=== PATIENT | male | born 1945 | race Caucasian/White ===

== ENCOUNTER 2017-01-26 06:56 | Inpatient (IN) | payer OTHER ==
--- NOTE | 2017-01-19 11:44 | PCM.ANEPRE ---
Anesthesia Pre-Op Review Reason for Review: Neuro hx- recent subdurals, cardio hx= Anesthesia Recommendations: Proceed with Procedure Additional Comments 71 yo with Parkinsons s/p deep brain stimulator, h/o bioprosthetic AVR, scheduled for TKR. Previously cancelled due to bradycardia which has had meds adjusted. In the interim, he has had a subdural hematoma in 10/27 following a fall. No residual neurologic deficit. Not on anticoagulation. His neurosurgeon Dr Jenkins reportedly cleared him for surgery on 01/05/17. Will need to turn of Deep Brain Stimulator off prior to surgery and recommended us of bipolar cautery during surgery. Would probably be best served by Spinal anesthetic at the discretion of anesthesiologist who will need to re-evaluate the patient on DOS. No additional workup or clearance needed. Chart Reviewed by: Jono Brooks MD Jan 19, 2017 11:44
[~2017-01-26] VITALS: Ht 177.8 cm; Wt 81.6 kg
[2017-01-26] VITALS (11 sets, daily range): BP systolic 96–135; BP diastolic 49–88; PULSE 53–88; RESP 13–18; O2SAT 89–99
[2017-01-26] MEDS: Lactated Ringer's 1,000 ML IV SCH ×2 (06:00→14:21)
[~2017-01-26 06:56] MED LIST: ASPI-973 PO; Bupivacaine Liposome 1.3% 20 mL Inj INFILTRATE ONE; CARB1TAB14 PO; CARV3.122 PO; CLOT30SO TOPICAL; CeFAZolin 2 Gm/50 mL D5W IV Premix IV ONE; DOCU250C2 PO; LISI2.5T PO; Lactated Ringer's 1,000 ML IV ONE; PARO40TA3 PO; RASA0.5T PO; UREA198C TP; Vancomycin Inj 1,000 MG in IV Premix 1 EACH IV ONE
--- NOTE | 2017-01-26 08:19 | PCM.HPANE ---
Patient Data Date of Service: Jan 26, 2017 Surgeon Admitting Provider: Attending Provider:Shubham Mensah MD Primary Care Physician:Erin Moses MD Other Provider:Alfredo Atwood Anesthesia Reason for Visit Right Knee Arthritis Ht/WT & BMI Height (Feet): 5 Height (Inches): 10 Weight (Kilograms): 84.1 Body Mass Index 26.00 Allergies Coded Allergies: No Known Allergies (Unverified , 06/25/16) Past Anesthesia History Anesthesia History: Denies:: Anesthesia Reactions (hallucinations post surgery) , Malignant Hyperthermia Diabetes History Hx Diabetes?: No MRSA MRSA: No Medications Blood Thinner: Aspirin Hypertension Medication: Yes Home Meds Incl Beta Raissa: No Reported Medications Paroxetine 40 Mg [id number] Mg PO AM 30 Days Ref 0 01/16/17 Docusate Sodium 250 Mg [id number] Mg PO DAILY Ref 0 01/16/17 Clotrimazole 1% 30 Ml [id number] Ml TOPICAL BID 01/16/17 Carbidopa/Levodopa 25-100 mg 1 Each Tablet1 Tablet PO TID 01/16/17 Aspirin 81 Mg [id number] Mg PO DAILY Ref 0 01/16/17 Discontinued Reported Medications Urea 30 Gm Cream..g.30 Gm TP BID 01/16/17 Lisinopril 2.5 Mg Tablet2.5 Mg PO DAILY 30 Days Ref 0 01/16/17 Carvedilol 3.125 Mg Tablet3.125 Mg PO BID Ref 0 01/16/17 Rasagiline Mesylate (Azilect)0.5 Mg Tablet0.5 Mg PO DAILY 01/16/17 History History of ENT Problems?: Yes HEENT History: Positive for:: Dysphagia (occasionally difficult with pills and some food ) Hearing Problem Denies:: Cataracts Glaucoma Denture Type: Full- Upper Full- Lower Teeth Condition: No Teeth Hx of Heart Problems?: Yes Cardiovascular History: Positive for:: Abdominal Aortic Aneurism (S/P ASCENDING AORTIC REPLAC. GRAFT/LIGATION LT ATRIAL APPENDAGE-COLO 2010) Cardiac Surgery (AVR- 2010) Chest Pain Heart Murmur Hypertension Irregular Heartbeat (PAC'S HOLTER MONITOR 03/2016) Valvular Heart Disease (echo 10/2016 ef 52%) Hx of Respiratory Problem?: Yes Respiratory History: Positive for:: Asthma COPD Dyspnea Denies:: Oxygen Administration Pneumonia Tuberculosis Use of C-PAP Machine Use of Inhalers / NEBS Hx Neurologic Problems?: Yes Neurological History: Positive for:: Parkinson's Disease (mainly unstable "feet freeze") Denies:: Alzheimer's Disease CVA Dizziness Headaches Multiple Sclerosis Seizures Other Neurological Pertinent: hx of subdural hematoma removed 10/2016- from fall deep brain stimulator in place for parkinsons - neuro clearance Hx of GI Problems?: Yes Hx of Problems?: No Genitourinary History: Denies:: Kidney Stones Urinary Tract Infection Male Hx: Denies:: Prostate Problems Scrotal Mass Testicular Surgery Skin History: Denies:: History Skin Disorders? Pressure Ulcers Hx Musculoskeletal Problems?: Yes Musculoskeletal History: Positive for:: Degenerative Joint Osteoarthritis Denies:: Back Injury Fibromyalgia Joint Replacement Myasthenia Gravis Systemic Lupus Hx of Psycho/Social Problems?: Yes Psycho Social History: Positive for:: Hx Depression Hx Surgeries?: Yes (DEEP BRAIN STIM,SYNTHETIC GENE INFUSION,AVR,ASC AORTIC GRAFT/LT ATRIAL APPE) Hx Any Other Health Problems?: Yes Other History: Positive for:: Hospitalization Denies:: Cancer Endocrine Disease Thyroid Disease Hx Diabetes: No Hx Alcohol Use: YesAlcoholic Drinks Per Day: beer once a weekHx Substance Use : No Smoking Status: Former Smoker Have You Smoked inLast 12 mo: No Stop/Bang Treated for Sleep Apnea?: No Do You Have a CPAP Machine?: No P-Blood Pressure: treated: Yes B- Body Mass Index > 35 kg/m2: No A- Age over 50: Yes N- Neck Large Circumference: No G- Gender Male: Yes CHAD Risk Assessment: High Risk, =/>3 Yes CHAD Category 4 OutPt Procedure: Yes Risk Assessment Category Category 1A: Patient has history of documented sleep apnea, and HAS NOT received any narcotic, sedative or anesthesia administration during this stay. Category 1B: Patient has history of documented sleep apnea, and HAS received any narcotic , sedative or anesthesia administration during this stay Category 2: Patient has SUSPECTED Obstructive Sleep Apnea, and HAS received any narcotic , sedative or anesthesia administration during this stay. Category 3: Patient has SUSPECTED Obstructive Sleep Apnea and HAS NOT received narcotic, sedative or anesthesia administration during this stay. Category 4: Outpatient in Procedural Areas with known sleep apnea or who screen positive for High Risk via the STOP/BANG questionnaire. Exam Exam Vital Signs Vital Signs Date Time Temp Pulse Resp B/P Pulse Ox O2 Delivery O2 Flow Rate FiO2 01/26/17 07:45 36.6 53 17 127/76 96 Room Air General Appearance: Alert, Oriented X3, Cooperative, No Acute Distress HEENT/AIRWAY: MP 2, Neck Movement (limited), Mouth Opening (3 fb) Lungs: Clear to Auscultation, Normal Air Movement Heart: Exam Unremarkable, Regular Rate/Rhythm, No Murmurs/Rubs/Gallops Meds/Labs/Diagnostics Admission Meds Current Medications Vancomycin/0.9 % Sod Chloride 1000 mg/Premix 200 ml @ 133.333 mls/hr PREOP ONCE IV Last administered on 01/26/17 08:11; Start 01/26/17 at 06:00; Stop at 07:29; Status DC Lactated Ringer's (Lr) 1,000 ml @ 120 mls/hr Q8H20M ONCE IV Last administered on 01/26/17 07:26; Start 01/26/17 at 05:00; Stop 01/26/17 at 13:19 Celecoxib (CeleBREX) 200 mg PREOP ONCE PO Last administered on 01/26/17 07:52 ; Start 01/26/17 at 06:00; Stop 01/26/17 at 06:01; Status DC Acetaminophen (Tylenol) 1,000 mg PREOP ONCE PO Last administered on 01/26/17 07:52; Start 01/26/17 at 06:00; Stop 01/26/17 at 06:01; Status DC Plan Impression Patient chart reviewed, patient interviewed and anesthestic plan with risks, benefits, and alternatives discussed, and informed consent obtained. NPO per Anesth. Guidelines: Yes ASA Physical Status: ASA3 Severe Disease Anesthetic Plan: GA Bene/Risks/Altern/Consents: Yes HP Complete Prior to Induction: Yes Other Patient does not want SAB, prefers GA. Jay Bass MD Jan 26, 2017 08:19
[2017-01-26] MEDS ORDERED: Tranexamic Acid 100 mg/mL 10 mL Inj ONE (09:25)
[2017-01-26] MEDS ORDERED: 0.9% Sodium Chloride 100 ML ONE (09:26)
[2017-01-26] MEDS ORDERED: Lactated Ringer's 1,000 ML IV SCH (10:04)
[2017-01-26] MEDS ORDERED: Lactated Ringer's 500 ML IV PRN (10:04)
[2017-01-26] MEDS ORDERED: EPHEDrine Sulfate 50 mg/mL Inj IM PRN (10:05)
[2017-01-26] MEDS ORDERED: Labetalol 5 mg/mL 4 mL Inj IV PRN (10:05)
[2017-01-26] MEDS ORDERED: fentaNYL-PF 50 mCg/mL 2 mL Inj IVPUSH PRN (10:05)
[2017-01-26] MEDS ORDERED: EPHEDrine Sulfate 50 mg/mL Inj IVPUSH PRN (10:05)
[2017-01-26] MEDS ORDERED: Ondansetron 2 mg/mL 2 mL Inj IVPUSH PRN ×2 (10:05→11:15)
[2017-01-26] MEDS ORDERED: HYDROmorphone 1 mg/mL Inj IVPUSH PRN (10:05)
[2017-01-26] MEDS ORDERED: Phenylephrine 10,000 mCg/mL Inj IVPUSH PRN (10:05)
[2017-01-26] MEDS ORDERED: Bupivacaine Liposome 1.3% 20 mL Inj INFILTRATE ONE (10:13)
[2017-01-26] MEDS ORDERED: Gentamicin 40 mg/mL 2 mL Inj IRRIGATION ONE (10:13)
[2017-01-26] MEDS ORDERED: Bupivacaine-MPF 0.5% W/EPI 30 mL Inj INFILTRATE ONE (10:13)
[2017-01-26] MEDS ORDERED: Vancomycin Dose per Pharmacist XX ONE (11:15)
[2017-01-26] MEDS ORDERED: Magnesium Hydroxide 10 mL Oral Concentration PO PRN (11:15)
[2017-01-26] MEDS ORDERED: Polyethylene Glycol (PEG) 17 Gm Powder PO PRN (11:15)
[2017-01-26] MEDS ORDERED: MetoCLOpramide 5 mg/mL 2 mL Inj IVPUSH PRN (11:15)
[2017-01-26] MEDS ORDERED: Sodium Biphos-Phos 133 mL Enema RECTAL PRN (11:15)
[2017-01-26] MEDS ORDERED: diphenhydrAMINE 25 mg Capsule PO PRN (11:15)
[2017-01-26] MEDS ORDERED: Ketorolac 15 mg/mL Inj IVPUSH PRN (11:15)
[2017-01-26] MEDS ORDERED: EPHEDrine/NS 5 mg/mL 5 mL Syringe ONE (12:29)
[2017-01-26] MEDS ORDERED: Propofol 10,000 mCg/mL 20 mL Inj ONE (12:29)
[2017-01-26] MEDS ORDERED: Dexamethasone 4 mg/mL Inj ONE (12:29)
[2017-01-26] MEDS ORDERED: fentaNYL-PF 50 mCg/mL 2 mL Inj ONE (12:29)
[2017-01-26] MEDS ORDERED: Ondansetron 2 mg/mL 2 mL Inj ONE (12:29)
[2017-01-26] MEDS ORDERED: HYDROmorphone 0.5 mg/0.5 mL iSecure Syringe IVPUSH PRN (12:40)
--- NOTE | 2017-01-26 12:52 | DRSVH ---
PROCEDURE: X-RAY RIGHT KNEE, ONE OR TWO VIEWS ([id number]) INDICATIONS: postop TECHNIQUE: 2 view(s) of the knee acquired. COMPARISON: None. FINDINGS: Bones: Patient is status post knee joint arthroplasty. Hardware components are in expected position s. Visualized bony structures are intact. Soft tissues: Overlying postoperative changes are noted. IMPRESSION: Postoperative changes status post right total knee arthroplasty. Dictated by: Madina Tran M.D. on 01/26/2017 at 12:50 Approved by: Madina Tran M.D. on 01/26/2017 at 12:50
[2017-01-26] MEDS: RYTARY PO SCH ×2 (12:53→20:01)
--- NOTE | 2017-01-26 12:59 | PCM.ANEP1 ---
Post Anesthesia PACU Phase 1 Assessment Date of Service: Jan 26, 2017 Vital Signs Vital Signs Date Time Temp Pulse Resp B/P Pulse Ox O2 Delivery O2 Flow Rate FiO2 01/26/17 12:20 88 18 111/72 95 Room Air 01/26/17 12:10 85 18 96/49 96 Room Air 01/26/17 12:05 37.3 85 13 114/77 96 Room Air 01/26/17 12:00 85 14 111/67 94 Room Air 01/26/17 11:55 84 15 123/88 95 Simple Mask 8 01/26/17 11:50 82 15 130/73 99 Simple Mask 8 01/26/17 11:45 83 14 135/77 99 Simple Mask 8 01/26/17 11:40 81 14 116/57 98 Simple Mask 8 01/26/17 07:45 36.6 53 17 127/76 96 Room Air Anesthetic Administered: GA Level of Alertness: Awake, talking ANAYA's with Equal Strength: Yes Pain: Yes Pain Scale Score: 5 Nausea or Vomiting: No CV Function & Hydration Stable: Yes Airway Device: none Oxygen Delivery: Room Air Lungs: Clear to Auscultation, Normal Air Movement Dermatome Level: Full Sensation PACU Phase 2 Assessment Complications: No Follow up Care: No Patient Instructions Provided: N/A Jay Bass MD Jan 26, 2017 12:59
--- NOTE | 2017-01-26 13:00 | NUR ---
arrived to room 1016 from PACU S/P Right total knee replacement. VSS, alert, oriented, comfortable, denies nausea, was able to eat lunch. ortho signs OK
[2017-01-26] MEDS: Sodium Chloride LOK Flush 10 mL Syringe IV SCH (14:21)
[2017-01-26] MEDS: HYDROcodone-APAP 5-325 mg Tablet PO PRN (14:24)
--- NOTE | 2017-01-26 15:33 | NUR ---
Evaluation completed. Please go to "Notes" then click on "Assessments and Notes" (bottom left corner of screen). Then select appropriate discipline tab on top of screen.
--- NOTE | 2017-01-26 17:51 | OP ---
[address] [address] OPERATIVE REPORT PATIENT: MIGDALIA BESS : 1945 MR#: [id number] ADMIT: 01/26/2017 JOB ID: [id number] DATE OF SURGERY: 01/26/2017 SURGEON: Shubham Mensah MD. PREOPERATIVE DIAGNOSIS(ES): Advanced lateral compartment osteoarthritis, right knee. POSTOPERATIVE DIAGNOSIS(ES): Lateral compartment osteoarthritis, right knee. PBX SUPERVISOR: Kourtney Wu PA-C. INDICATIONS: This gentleman has had persistent now extreme disability. He is unable to ambulate on his knee. Due to the extreme pain, symptoms are uncontrolled by conservative treatment options. He elects to proceed with a unicompartmental versus total knee arthroplasty dependent on findings at the time of surgery. PROCEDURE IN DETAIL: The patient was prepped and draped in the usual sterile fashion. An anterolateral portal was made. Medial compartment was visualized arthroscopically and moderately advanced osteoarthritis was noted at the time. Decision was made to proceed with a total knee and anteromedial approach was made. Dissection carried down. The patella was subluxed laterally, was visualized and noted to be in excellent condition with no significant wear of the trochlear groove. A drill hole was subsequently placed in his distal femur and a 5 degree valgus distal femoral cut was made and the femur was sized to a 10 femoral component. Chamfer cuts and drill holes were made. The tibia was cut with the extramedullary tool and subsequently sized to an F tray fixed in appropriate position, rotation and drill and punch was utilized. Trial reductions performed. A 10 mm polyethylene produced excellent soft tissue tension, tracking and alignment. All meniscal tissue and osteophytes were carefully removed from the knee. Pressurized lavage was followed by pressurized cementation of the components. Excess cement was removed during the curing process. Final construct was assembled. Final poly snapped securely into place. Tourniquet was let down. TXA was given for hemostasis control. Electrocautery was not utilized due to his deep brain stimulator. A deep Hemovac drain, however, was left. Deep closure with #2 Quill deep followed by a 2-0 Vicryl, 3-0, and a 4-0 intracuticular stitch. Patient tolerated procedure well. There were no complications.
[2017-01-26] MEDS: Senna-Docusate 8.6-50 mg Tablet PO SCH (20:26)
[2017-01-26] MEDS ORDERED: Vancomycin Inj 1,250 MG in 0.9% Sodium Chloride 250 ML IV ONE (20:30)
[2017-01-27] MEDS: Sodium Chloride LOK Flush 10 mL Syringe IV SCH ×3 (00:33→16:27)
--- NOTE | 2017-01-27 03:35 | NUR ---
Activity Pt has denied pain so far this shift and reports "feeling comfortable." Ice applied to knee. Manohar wrap dressing is CDI, hemovac draining serosanguineous drainage, 115 cc so far this shift. Orthos intact. Pt using urinal at bedside and stood up with SBA and FWW to put underwear on. Tolerating general diet. SCDs are on.
[2017-01-27] MEDS: HYDROcodone-APAP 5-325 mg Tablet PO PRN ×3 (04:16→13:46)
[2017-01-27 05:45] VITALS: BP 115/73; PULSE 83; RESP 18; O2SAT 97
[2017-01-27 06:48] LABS: BASOPHILS % (AUTO) 0.1 % (0-3); EOSINOPHILS % (AUTO) 0.7 % (0-5); MONOCYTES % (AUTO) 9.1 % (4-12); Mean Corpuscular Hemoglobin 28.9 pg (27.0-35.0); Mean Corpuscular Volume 88.9 fL (81-100); Platelet Count 153 bil/L (150-400)
[2017-01-27] MEDS: Lactated Ringer's 1,000 ML IV SCH ×2 (07:00→19:30)
[2017-01-27] MEDS: RYTARY PO SCH ×3 (07:17→20:47)
--- NOTE | 2017-01-27 08:43 | PCM.PNORTH ---
Subjective Visit Information: Reason for Visit Right Knee Arthritis Surgery/Surgery Date R TKA 01/26/17 Post-Op Day # Date of Admission: Jan 26, 2017 at 12:28 Hospital Day # Objective Exam Vital Signs and I/O Vital Sign - Last Date Time Temp Pulse Resp B/P Pulse Ox O2 Delivery O2 Flow Rate FiO2 01/27/17 05:45 36.6 83 18 115/73 97 Room Air 01/26/17 11:55 8 Intake and Output 01/26/17 01/26/17 01/27/17 Cumulative From/Thru 15:00 23:00 07:00 01/16/17 16:14 - 01/27/17 06:20 Intake Total 1350 ml 600 ml 820 ml 2770 ml Output Total 100 ml 400 ml 975 ml 1475 ml Balance 1250 ml 200 ml -155 ml 1295 ml Intake Oral 600 ml 550 ml 1150 ml IV Total 1350 ml 270 ml 1620 ml Output Urine Total 400 ml 650 ml 1050 ml Drainage Total 0 ml 325 ml 325 ml Estimated Blood Loss 100 ml 100 ml Lab & Micro Results Laboratory Tests Test 01/27/17 05:33 White Blood Count 7.4th/mm3 (3.8-10.1) Red Blood Count 3.80mil/mm3 (4.40-5.80) Hemoglobin 11.0g/dL (13.8-17.2) Hematocrit 33.8% (41.0-50.0) Mean Corpuscular Volume 88.9fL (81-100) Mean Corpuscular Hemoglobin 28.9pg (27.0-35.0) Mean Corpuscular Hemoglobin Concent 32.5% (32.0-37.0) Red Cell Distribution Width 14.7% (12.3-15.4) Platelet Count 153bil/L (150-400) Neutrophils (%) (Auto) 79.0% (40-74) Lymphocytes (%) (Auto) 10.8% (14-46) Monocytes (%) (Auto) 9.1% (4-12) Eosinophils (%) (Auto) 0.7% (0-5) Basophils (%) (Auto) 0.1% (0-3) Result Diagram: 01/27/17 0533 SURGICAL WOUND : Drain Location Body Site: Knee Wound Drainage Type: Hemovac Assessment & Plan Impression POD#1 right total knee arthroplasty Problems: Plan Weightbearing: Weightbearing as tolerated with a front wheeled walker DVT prophylaxis: Aspirin 81 mg twice a day 6 weeks Physical therapy for transfers, progressive ambulation, strengthening Wound care: Perioperative dressing will be changed to a island dressing tomorrow. Analgesia: Continue oral analgesia. Discharge plan: Discharge home in 1-2 days. Start outpatient physical therapy next week. Follow-up plan: In 2 weeks at [facility] with PA for wound check and at [address] Mensah with x-rays Kourtney Wu PA-C Jan 27, 2017 08:43
[2017-01-27] MEDS: PARoxetine 20 mg Tablet PO SCH (09:21)
[2017-01-27] MEDS: Senna-Docusate 8.6-50 mg Tablet PO SCH ×2 (09:21→20:47)
[2017-01-27 12:18] VITALS: BP 107/61; PULSE 34; RESP 18; O2SAT 96
--- NOTE | 2017-01-27 16:37 | NUR ---
Pain / Hemovac Pt c/o persistent pain this p.m. He did work with PT this a.m. and ambulated in the hallway. Administered 2 hydrocodone for pain, but pt reports pain is still 7/10. Administered 5 mg oxycodone to see if this works better for him. He also has been bending his knee slightly. Instructed pt to keep his knee straight. PT also instructed pt regarding the same. Spoke with Sobeida ASTORGA regarding the persistent sanguineous drainage from the hemovac. Pt had 325 mL output during NOC shift. I recorded 90 mL out this a.m., and hemovac has additional drainage in it now. Sobeida instructed me to clamp the hemovac, have pt flex his knee and elevate his lower leg to encourage tamponade. She advised that the pt should remain in this position for the night and remain in bed except for voiding or elimination.
[2017-01-27 17:41] VITALS: BP 116/71; PULSE 60; RESP 18; O2SAT 97
[2017-01-27 21:05] VITALS: BP 120/79; PULSE 70; RESP 16; O2SAT 94
[2017-01-28] MEDS: Sodium Chloride LOK Flush 10 mL Syringe IV SCH ×3 (00:41→16:30)
--- NOTE | 2017-01-28 03:28 | NUR ---
Hemovac/ pain At beginning of shift pt had accidently pulled out hemovac. Hemovac tip intact and bleeding from hemovac site had completely stopped. Top part of dressing changed and ABD placed with sundeep wrap on top. Pt reporting 7/10 pain and has been taking 2 oxycodone q 4 hrs, pt reporting relief but pain does return within 3 hrs. Pt has been trying to get up and will forget to call. Bed alarm has been in place and pt instructed to call before getting up so we can assist him.
[2017-01-28 05:50] VITALS: BP 127/72; PULSE 62; RESP 16; O2SAT 92
--- NOTE | 2017-01-28 06:24 | PCM.PNORTH ---
Subjective Date of Service: Jan 28, 2017 Visit Information: Reason for Visit Right Knee Arthritis Surgery/Surgery Date R TKA 01/26/17 Post-Op Day # 2 Date of Admission: Jan 26, 2017 at 12:28 Hospital Day # Subjective Due to persistent drain output, the hemovac was clamped last night and knee placed in flexion. The patient accidentally pulled out the hemovac. Patient is confused and does not remember that he walked yesterday. He ambulated 120 feet with physical therapy. The therapist stated the patient is having difficulty following instructions. Postop General: No Shortness of Breath, No Chest Pain, Good Appetite Pain Management: PO Objective Exam Objective Patient is seen lying in bed Vital Signs and I/O Vital Sign - Last Date Time Temp Pulse Resp B/P Pulse Ox O2 Delivery O2 Flow Rate FiO2 01/27/17 21:05 37.2 70 16 120/79 94 Room Air 01/26/17 11:55 8 Intake and Output 01/27/17 01/27/17 01/28/17 Cumulative From/Thru 15:00 23:00 07:00 01/16/17 16:14 - 01/28/17 03:00 Intake Total 592 ml 3362 ml Output Total 610 ml 2085 ml Balance -18 ml 1277 ml Intake Oral 592 ml 1742 ml IV Total 1620 ml Output Urine Total 400 ml 1450 ml Drainage Total 210 ml 535 ml Estimated Blood Loss 100 ml Result Diagram: 01/27/17 0533 General Appearance: Alert, Cooperative, No Acute Distress, Other (mildly confused) Extremities: Distal Pulses Palpable, No Compartment Syndrom Noted, Thigh & Calf Soft/Nontender Postop Sensory Motor: Distal Motor Intact, Distal Sensation Intact, NVI Distally SURGICAL WOUND : Wound Location/Description Right knee: Surgical dressing is removed. The wound is well approximated and Steri-Strips are intact. There is no erythema or drainage present. The wound is cleansed with hydrogen peroxide and dressed with a Silverlon and Island dressing. 2 x 2 gauze and Tegaderm were placed over the drain site. Activity: Activity per PT, Ambulate with PT Catheters: None Assessment & Plan Impression POD #2 status post right TKA Problems: Plan Weightbearing: Weightbearing as tolerated with walker DVT prophylaxis: aspirin 81 mg twice a day 6 weeks Physical therapy for transfers, progressive ambulation, therapeutic exercise. Patient is having difficulty following instructions due to memory issues. Wound care: Dressing was changed today by GAURI Nursing: Please apply thigh-high compression stockings bilateral lower extremities Discharge plan: Discharge home either later today or tomorrow depending on how therapy goes today. Start outpatient physical therapy next week Follow-up plan: In 2 weeks at [facility] with PA for wound check and at [address] Mensah with x-rays Pain Management: [place], oxycodone VTE Prophylaxis: SCDs, Other (ASpirin 81 mg BID) Resuscitation Status: CPR: Attempt Resuscitation [place] HillsShira sanches PA-C Jan 28, 2017 06:24
[2017-01-28] MEDS: Lactated Ringer's 1,000 ML IV SCH ×2 (08:43→20:30)
[2017-01-28] MEDS: PARoxetine 20 mg Tablet PO SCH (08:49)
[2017-01-28] MEDS: RYTARY PO SCH ×3 (08:49→21:15)
[2017-01-28] MEDS: Senna-Docusate 8.6-50 mg Tablet PO SCH ×2 (08:50→21:15)
--- NOTE | 2017-01-28 10:27 | NUR ---
Spoke with Kristy in patient access at [facility] and this patient is 90% connected with PNT. Updated PRODUCT TEST ENGINEER
[2017-01-28 12:22] VITALS: BP 138/72; PULSE 72; RESP 20; O2SAT 96
--- NOTE | 2017-01-28 16:34 | NUR ---
Social Work- Screening/Multidisciplinary Rounds/Readiness for Discharge Data: EMR reviewed. Pt is a 71 year old male admitted for right knee arthritis per H&P. Pt is POD 2. Pt's insurance is [employer]. Pt has dementia at baseline and is not a reliable historian. SW attempted to complete assessment for pt today and pt thought he was at home at first. Pt then realized he was in the hospital. Per chart review, pt resides at home with his . Pt discussed in rounds, no SW needs identified. PT has cleared pt for home as pt was able to ambulate 120 feet. Pt will begin outpt PT after discharge. Pt is likely to discharge tomorrow. T/C to pt's [facility]. SW left message requesting return call regarding pt's discharge plan. Pt anticipated to discharge home with and outpt PT. SW will continue to follow. Assessment: Pt who requires outpt PT. Plan: T/C to pt's [facility]. SW left message requesting return call regarding pt's discharge plan. Pt anticipated to discharge home with and outpt PT. SW will continue to follow. MADELINE Castorena
[2017-01-28 16:38] VITALS: BP 131/77; PULSE 64; RESP 20; O2SAT 95
--- NOTE | 2017-01-28 18:41 | NUR ---
Confusion/Pain/Impulsiveness Pt confused this morning on where he was; reoriented easily. PA made aware and 5mg PO Roxicodone given for pain today as pt has c/o pain 8/10 most of day today; even closely after pain medication administered. Reoriented to pain scale and states verbal understanding but not certain pt has clear understanding. Pt awakened from a nap this afternoon and states "Am I at home?" RN reoriented pt to room and why he was here. Pt showed some impulsiveness this afternoon when he got up to use the bathroom without using his call light; RN reoriented pt to use of call light after bathroom needs taken care of; edna alarm on when pt tucked into bed. Up with PT today and staff to bathroom with FWW and SBA with verbal quieing to stay close to the walker and heal toe touch to floor, to which pt responded well. Will continue to monitor with frequent rounds.
[2017-01-28 19:49] VITALS: BP 110/68; PULSE 84; RESP 18; O2SAT 96
[2017-01-29] MEDS: Sodium Chloride LOK Flush 10 mL Syringe IV SCH ×2 (00:50→08:38)
[2017-01-29 04:46] VITALS: BP 91/58; PULSE 64; RESP 17; O2SAT 96
--- NOTE | 2017-01-29 06:22 | NUR ---
NOC PT has complained of minimal pain. Pt was medicated once with toradol and once with 5mg of oxycodone. PT has a flat affect and does not conversate much. His responses are the bare minimum and when speaking to him it is often difficult to ascertain whether pt actually understands what you are telling him. PT will call on light multiple times for simple requests. PT does not fully extend his R knee even with frequent reminders to do so. Discussed this with Salas ASTORGA this am. R knee surgical site dressing is c/d/i. CMS intact. PT able to ambulate well with FWW, SBA and cueing. PT voided in bathroom once and was also incontinent once. VS WNL. Bell bed alarm on. PT is planning for d/c today to home with either HH PT or outpt PT.
--- NOTE | 2017-01-29 06:40 | PCM.PNORTH ---
Subjective Date of Service: Jan 29, 2017 Visit Information: Reason for Visit Right Knee Arthritis Surgery/Surgery Date R TKA 01/26/17 Post-Op Day # Date of Admission: Jan 26, 2017 at 12:28 Hospital Day # Subjective Found patient sleeping supine easily awakened. No complaints of pain at this time. Patient is positioned with his knee flexed and externally rotated at the hip. Attempts a conversation with the patient our nonproductive as he does not appear to know anything about his discharge possibilities and post discharge care. Patient is cooperative but appears to have some level of cognitive dysfunction possibly secondary to Parkinson's. Postop General: No Complaints, No Shortness of Breath, No Chest Pain, Good Appetite Pain Management: PO Objective Exam Objective Patient is alert and communicative but blunted in his interaction. 9 postoperative dressings are clean dry and intact. Calf and thigh are soft and nontender at right lower extremity. Toe wiggle and sensation are intact at right lower extremity distally. SCD are in place. Wright is absent. Gait 150 feet with physical therapy on 11/28/2016. Recommendation from physical therapy is for discharge to home with home health 2-3 times a week. Vital Signs and I/O Vital Sign - Last Date Time Temp Pulse Resp B/P Pulse Ox O2 Delivery O2 Flow Rate FiO2 01/29/17 04:46 36.8 64 17 91/58 96 Room Air 01/26/17 11:55 8 Intake and Output 01/28/17 01/28/17 01/29/17 Cumulative From/Thru 15:00 23:00 07:00 01/16/17 16:14 - 01/29/17 04:46 Intake Total 1635 ml 200 ml 5297 ml Output Total 625 ml 3060 ml Balance 1010 ml 200 ml 2237 ml Intake Oral 850 ml 200 ml 2892 ml IV Total 785 ml 2405 ml Output Urine Total 625 ml 2425 ml Drainage Total 535 ml Estimated Blood Loss 100 ml # Voids 3 4 # Bowel Movements 0 0 Result Diagram: 01/27/17 0533 General Appearance: Alert, Cooperative, No Acute Distress Extremities: No Compartment Syndrom Noted, Thigh & Calf Soft/Nontender Postop Sensory Motor: Distal Motor Intact, Movement in Toes, Distal Sensation Intact Activity: Activity per PT, Ambulate with PT (weightbearing as tolerated on the right lower extremity using a front-wheeled walker) Catheters: None Assessment & Plan Impression Patient is a 71-year-old male who is undergone a right total knee arthroplasty on 01/26/2017. Patient suffers from Parkinson's at baseline and is mobile with physical therapy. There is a level of cognitive dysfunction present which apparently limits patient from retaining instruction and direction. Problems: Plan Postop day #3 from right total knee arthroplasty performed on 01/26/[address] Shubham Mensah. Continue weightbearing as tolerated on the right lower extremity using front- wheeled walker. Continue formal physical therapy for mobility, gait and safety. Patient has difficulty remembering instructions secondary to memory issues likely secondary to Parkinson's. Continue by mouth pain medications only in the form of Percocet 5/325 one tab every 4-6 hours when necessary, pain. Continue ASA 81 mg EC by mouth twice a day 6 weeks postop for DVT prophylaxis. Postoperative dressings clean dry and intact. Keep incision clean, dry and intact and covered until seen in office in 2 weeks. Please encourage patient to keep right knee extended to prevent knee flexion contracture. Nursing please discontinue any IV pain medication. Nursing please apply bilateral thigh-high MYA hose. Nursing please change dressing prior to discharge and send patient home with extra dressings. Follow-up in 2 weeks [facility] orthopedic clinic with mid-level provider for wound check and suture removal. Follow-up in 6 weeks at [facility] orthopedic clinic with Dr. Shubham Mensah with 2 view right knee x-rays on arrival. Patient should begin outpatient physical therapy when he has completed 2 weeks of home health physical therapy.. Planning discharge today on 01/29/2017 to home with home health physical therapy 3 times a week for 2 weeks from [facility] and spouse as caregiver. VTE Prophylaxis: SCDs (bilateral), Other (ASA 81 mg EC by mouth twice a day 6 weeks postoperative DVT prophylaxis. Bilateral thigh-high MYA hose.) Resuscitation Status: CPR: Attempt Resuscitation Salas Saenz PA-C Jan 29, 2017 06:40
[2017-01-29] MEDS ORDERED: oxyCODONE-Acetamin 5-325 mg Tablet PO PRN (06:50)
[2017-01-29] MEDS: RYTARY PO SCH ×2 (08:37→12:51)
[2017-01-29] MEDS: PARoxetine 20 mg Tablet PO SCH (08:38)
[2017-01-29] MEDS: Senna-Docusate 8.6-50 mg Tablet PO SCH (08:38)
[2017-01-29] MEDS: Lactated Ringer's 1,000 ML IV SCH (08:40)
--- NOTE | 2017-01-29 09:47 | PCM.DIORTH ---
Ortho Discharge Instruction Date of Service: Jan 29, 2017 Dates of Hospitalization Date of Hospital Admission Jan 26, 2017 at 12:28 Providers Admitting Physician: Shubham Mensah MD Primary Care Physician: Erin Moses MD Attending Physician: Shubham Mensah MD Diet Discharge Diet: No restrictions Activity Discharge Activity-General: Try not to overdue, Be up and about, Balance rest and activity, Ice incision 3-5 time/day for 20min, Activity as pain allows, Activity as energy allows, No driving while taking narcotic Right Upper Extremity: Weight bearing as tolerated Discharge Assist Device: Front Wheeled Walker Dressing and Incisional Care Discharge Dressing Care: Keep dressing clean, dry & intact, Change soiled dressing Discharge Hygiene: May shower (patient may shower but right knee and dressing should be wrapped and kept clean and dry.), DO NOT soak incision under water, NO bathtub, hot tub or whirlpool Additional Instructions Discharge Instructions Postop day #3 from right total knee arthroplasty performed on 01/26/[address] Shubham Mensah. Continue weightbearing as tolerated on the right lower extremity using front- wheeled walker. Continue formal physical therapy for mobility, gait and safety. Patient has difficulty remembering instructions secondary to memory issues likely secondary to Parkinson's. Continue by mouth pain medications only in the form of Percocet 5/325 one tab every 4-6 hours when necessary, pain. Continue ASA 81 mg EC by mouth twice a day 6 weeks postop for DVT prophylaxis. Postoperative dressings clean dry and intact. Keep incision clean, dry and intact and covered until seen in office in 2 weeks. Please encourage patient to keep right knee extended to prevent knee flexion contracture. Nursing please discontinue any IV pain medication. Nursing please apply bilateral thigh-high MYA hose. Nursing please change dressing prior to discharge and send patient home with extra dressings. Follow-up in 2 weeks [facility] orthopedic clinic with mid-level provider for wound check and suture removal. Follow-up in 6 weeks at [facility] orthopedic clinic with Dr. Suhbham Mensah with 2 view right knee x-rays on arrival. Patient should begin outpatient physical therapy when he has completed 2 weeks of home health physical therapy.. Planning discharge today on 01/29/2017 to home with home health physical therapy 3 times a week for 2 weeks from [facility] and spouse as caregiver. Follow Up Plan Follow Up Plan Follow-up in 2 weeks, 6 weeks and 12 weeks postoperatively. Follow up when necessary in the interim. Follow-up Provider (F9): Shubham Mensah MD Follow-up appointment: Weeks (follow-up in 2 weeks at [facility] orthopedic clinic with mid-level provider for wound check and suture removal.) Call your provider for: Fever, Chills, Shortness of breath, Vomitting, Drainage at incision Salas Saenz PA-C Jan 29, 2017 09:47
[2017-01-29] MEDS ORDERED: ASPI-973 PO (09:52)
[2017-01-29] MEDS ORDERED: OXYC1TAB24 PO (09:52)
--- NOTE | 2017-01-29 09:55 | PCM.DC.ORT ---
Discharge Summary Date of Service: Jan 29, 2017 Date of Hospital Admission: Jan 26, 2017 at 12:28 Date of Surgery: Jan 26, 2017 Date of Discharge: Jan 29, 2017 Reason for Hospitalization: Severe right knee osteoarthritis Procedures Performed: Right total knee arthroplasty Hospital Course: Patient was admitted to the preoperative care unit on's 01/26/2017 and upon processing was taken to the operating room where his procedure was performed without incident. Patient was then transferred to the postoperative care unit and upon recovery from anesthesia and was transferred to the orthopedic care unit where he participated with physical therapy and received a recommendation for discharge to home. Problems: (1) Osteoarthritis Status: Acute ICD Code: M19.90 Disposition: Discharge to home with home health and spouses caregiver Orthopedic Follow up Plan: In Two Weeks in my clinic (follow-up in 2 weeks [facility] orthopedic clinic on prearranged appointment for wound check and suture removal) Discharge Instructions: Postop day #3 from right total knee arthroplasty performed on 01/26/[address] Shubham Mensah. Continue weightbearing as tolerated on the right lower extremity using front- wheeled walker. Continue formal physical therapy for mobility, gait and safety. Patient has difficulty remembering instructions secondary to memory issues likely secondary to Parkinson's. Continue by mouth pain medications only in the form of Percocet 5/325 one tab every 4-6 hours when necessary, pain. Continue ASA 81 mg EC by mouth twice a day 6 weeks postop for DVT prophylaxis. Postoperative dressings clean dry and intact. Keep incision clean, dry and intact and covered until seen in office in 2 weeks. Please encourage patient to keep right knee extended to prevent knee flexion contracture. Nursing please discontinue any IV pain medication. Nursing please apply bilateral thigh-high MYA hose. Nursing please change dressing prior to discharge and send patient home with extra dressings. Follow-up in 2 weeks [facility] orthopedic clinic with mid-level provider for wound check and suture removal. Follow-up in 6 weeks at [facility] orthopedic clinic with Dr. Shubham Mensah with 2 view right knee x-rays on arrival. Patient should begin outpatient physical therapy when he has completed 2 weeks of home health physical therapy. Rx has been placed in chart. Planning discharge today on 01/29/2017 to home with home health physical therapy 3 times a week for [address] [facility] and spouse as caregiver. Management Plan: Patient will be seen at 2 weeks, 6 weeks and 12 weeks postoperatively. Patient will be seen when necessary in the interim. Aspirin (Aspirin) 81 Mg Tablet 81 MG PO BID Clotrimazole 1% (Clotrimazole 1%) 30 Ml Solution 30 ML TOPICAL BID Docusate Sodium (Docusate Sodium) 250 Mg Capsule 250 MG PO DAILY Paroxetine (Paroxetine) 40 Mg Tablet 20 MG PO AM oxyCODONE-Acetaminophen 5-325 mg (oxyCODONE-Acetaminophen 5-325 mg) 1 Each Tablet 1 TAB PO Q4-6H PRN PRN For Pain Salas Saenz PA-C Jan 29, 2017 09:55
--- NOTE | 2017-01-29 10:13 | NUR ---
Social Work- Discharge/Multidisciplinary Rounds Data: EMR reviewed. Pt is on day 3 of hospitalization for TKA. Pt is POD 3. Per multidisciplinary rounds, pt is medically stable for discharge with HH services. SW received HH order. Pt has dementia at baseline. NIKKI spoke with pt's Neris regarding discharge plan and discharge today. Pt's is comfortable taking pt home. Pt's assists pt at home with showering and cues for ADLs but pt is I with ADLs and self care once reminded. Pt has grab bars, a bath bench, no stairs in his home, and a ramp for the one step. Pt has a bed rail to prevent falls out of bed. SW discussed day respite programs for pt and SW will provide the Senior Resource Guide for information on day respite programs and the [facility] resources. Neris is agreeable to this being placed in pt's room. Pt has a history of HH services through [facility]. Pt's thought that pt was open with [facility] currently but T/C to Sagar Crouch confirms that pt is not open with [facility] at this time. Pt was discharged from PT services through [facility]. SW spoke with Ortho provider regarding discharge needs. Ortho provider feels that pt's HH services should be ordered for 3 times/week for two weeks until pt is able to transition to outpt PT. SW spoke with pt's regarding this and pt's requested that pt's HHPT services continue through [facility]. She has been very happy with [facility] services. SW spoke with [facility] regarding new referral and they are able to open pt and agreeable to service pt 3 times weekly for two weeks. Access given. F2F completed and given to Sagar. Copy made and placed in pt's chart. Neris is anticipating picking up patient at 1300 today. All updated and agreeable to plan regarding HH services. Pt to transport home via POV. Assessment: Pt for whom HHPT services are medically necessary for two weeks until pt transitions to outpt PT. Plan: Pt's to merchandise pickup/receiving associate pt at 1300. HHPT services are coordinated through [facility]. F2F provided. Senior Resource Guide in pt's room. No additional discharge needs identified. Elisa Gonzalez, PRODUCT ADVISOR
[2017-01-29 12:18] VITALS: BP 112/77; PULSE 71; RESP 17; O2SAT 94
--- NOTE | 2017-01-29 14:27 | NUR ---
Discharge Pt discharged at 1424 in w/c to private vehicle with . Island dressing is CDI and bilateral MYA hose were applied. Pt's pain is well controlled with PO medications. Pt has discharge instructions, care notes and rx's and understands s/s of when to return. Home medication given to . Pt has all belongings and all questions answered. IV removed intact.
== END 2017-01-29 14:25 | disposition home health service (06) | DRG 470 ==
LOC: SAS 06:56 → OSC 12:28
PROVIDERS: ADMIT Orthopaedic Surgery; ATTEND Orthopaedic Surgery
PROC: 0SRC0J9 Replacement of Right Knee Joint with Synthetic Substitute, Cemented, Open Approach (ICD-10-PCS; principal; 2017-01-26 09:15)
DX: M17.11 Unilateral primary osteoarthritis, right knee (principal); G20 Parkinson's disease